=== PATIENT | male | born 1975 | race Hispanic/Latino ===

== ENCOUNTER → 2017-02-21 | Day surgery (SDC) | payer OTHER ==
[~2017-02-21] VITALS: Ht 177.8 cm; Wt 83.9 kg
[~2017-02-21] MED LIST: RANITIDINE HCL150 M2 PO; [UNRECOGNIZED DRUG - OTHER] OPH
--- NOTE | 2017-02-21 15:27 | Operative Report ---
Operative/Inv Procedure Report Surgery Date: 02/21/17 Name of Procedure: Excision subfascial scalp lipoma Pre-Operative Diagnosis: Lipoma Post-Operative Diagnosis: Same Estimated Blood Loss: scant Surgeon/Gold Leaf Layer: PETER ORONA MD Anesthesia: local monitored anesthesi Specimens: 2cm lipoma Operative/Procedure Note Note: After consent he is brought to the operative laid prone. His right occipital area was then prepped and draped. Skin overlying the mass was inserted local anesthesia and a transverse incision made sharply. Dissection was carried forth down to the subcutaneous tissues tissues and the mass was deep to the musculature. Incised with cautery. Hemostasis achieved with cautery. There was a small benign-appearing lipoma which was circumferentially dissected with sharp dissection passed off the field. The fascia was closed with 3-0 Vicryl. Skin closed with 4-0 Vicryl. Dermabond was applied along with a sterile dressing. CC: ANNA WING APRN
== END ==
LOC: STS 02:09
DX: D21.0 Benign neoplasm of connective and other soft tissue of head, face and neck (principal); K21.9 Gastro-esophageal reflux disease without esophagitis; G43.909 Migraine, unspecified, not intractable, without status migrainosus
CPT/HCPCS: 88304; 88305; J2250

== ENCOUNTER 2018-01-10 21:34 | Emergency (ER) | payer OTHER ==
[~2018-01-10] VITALS: Ht 177.8 cm; Wt 83.9 kg
--- NOTE | 2018-01-10 22:00 | ED HEADACHE COMPLAINT ---
History of Present Illness General Chief Complaint: Headache Stated Complaint: CARR, ELEVATED BP Source: patient Exam Limitations: no limitations Vital Signs & Intake/Output Vital Signs & Intake/Output Vital Signs Date Time Temp Pulse Resp B/P B/P Pulse O2 O2 Flow FiO2 Mean Ox Delivery Rate 01/107 99 Room Air 01/10 2145 98.5 55 18 154/85 98 Room Air Allergies Coded Allergies: NO KNOWN ALLERGIES (03/05/13) Reconcile Medications Ranitidine HCl 150 MG CAPSULE 1 CAP PO BID PRN GERD (Reported) Triage Note: PT FROM HOME C/O MIGRAINE SINCE 599. PT STATES THAT LAST FRIDAY HE BECAME VERY DIZZY AT WORK AND HAD TO SIT DOWN. PT STATES "I THINK IT MAY BE STRESS BUT IM UNSURE" PT STATES HE HAD HIS SIGNIFICANT OTHER TAKE BP AND IT WAS ELEVATED. PTS BP IN TRIAGE 154/85. PT STATES BACK OF HIS HEAD/NECK MIGRAINE. PT TOOK TYLENOL WITHOUT RELIEF. PT STATES SOB AND ANYTHING CAN MAKE PT MAD, PER PT. "ALMOST LIKE ANXIETY" VSS. PT CALM AND COOPERATIVE IN TRIAGE, NO DISTRESS NOTED 98% 02 ON RA. Triage Nurses Notes Reviewed? yes Onset: Abrupt Duration: day(s): (1), better, intermittent Timing: single episode today Quality/Severity: moderate, pressure Severity Numbers: 7 Head Injury Location: occipital No Modifying Factors: none Associated Symptoms: fatigue, SOB HPI: 42-year-old male past medical history of migraine headaches, GERD, asthma exacerbation of headaches, fatigue and shortness of breath. Patient states that he woke up today with a headache. Pain is located in the occipital area radiates into his neck described as pressure. He states he has a history of similar headaches in the past. No nausea vomiting or photophobia. No head trauma changes in vision. No fever. He does report associated fatigue and some shortness of breath. The shortness of breath wasn't arrested is not worse on exertion. Has no chest pain. No hemoptysis no lower extremity edema. No history of DVT no recent surgeries trauma. He states that he took ibuprofen earlier today with complete resolution of his headache. He also notes that he felt like his blood pressure was high today. He checked it at home it was 150s over 90s. He's never had high blood pressure before he does not take any medicine for blood pressure. (Danie Rios) Past History Travel History Traveled to [place] past 21 day No Medical History Any Pertinent Medical History? see below for history Neurological: migraine EENT: NONE Cardiovascular: NONE Respiratory: asthma Gastrointestinal: GERD, hiatal hernia Hepatic: NONE Renal: NONE Musculoskeletal: NONE Psychiatric: NONE Endocrine: NONE Blood Disorders: NONE Cancer(s): NONE PIPE PRODUCTION WORKER/Reproductive: NONE Surgical History Surgical History: non-contributory Psychosocial History What is your primary language Kenyan Tobacco Use: Never used Family History Hx Contributory? No (Danie Rios) Review of Systems Review of Systems Constitutional: Reports: no symptoms. Eyes: Reports: no symptoms. Ears, Nose, Throat, Mouth: Reports: no symptoms. Respiratory: Reports: no symptoms. Cardiovascular: Reports: no symptoms. Gastrointestinal/Abdominal: Reports: no symptoms. Genitourinary: Reports: no symptoms. Musculoskeletal: Reports: no symptoms. Skin: Reports: no symptoms. Neurological/Psychological: Reports: see HPI (FATIGUE), headache. Hematologic/Endocrine: Reports: no symptoms. Endocrine: Reports: no symptoms. Immunologic/Allergic: Reports: no symptoms. All Other Systems: Reviewed and Negative (Danie Rios) Physical Exam Physical Exam General Appearance: well developed/nourished, no apparent distress, alert, awake Head: atraumatic, normal appearance Eyes: Bilateral: normal appearance, PERRL, EOMI. Ears, Nose, Throat: normal pharynx, normal ENT inspection, hearing grossly normal Neck: normal inspection, supple, full range of motion Respiratory: normal breath sounds, chest non-tender, no respiratory distress, lungs clear Cardiovascular: regular rate/rhythm, normal peripheral pulses Gastrointestinal: normal bowel sounds, soft, non-tender, no organomegaly Back: normal inspection, normal range of motion, no vertebral tenderness Extremities: normal inspection, normal range of motion, no edema Psychiatric: awake, alert, oriented x 3 Cranial Nerves: normal hearing, normal speech, PERRL Coordination/Gait: normal finger to nose, normal gait Motor/Sensory: no motor/sensory deficits Skin: intact, normal color, warm/dry Lymphatic: no anterior cervical santa Core Measures Sepsis Present: No Sepsis Focused Exam Completed? No (Danie Rios) Progress Differential Diagnosis: cluster CARR, IC mass/tumor, intracranial Hem., migraine CARR, musculoskeletal pain, sinusitis, subarach. Hem., tension CARR Plan of Care: Orders Procedure Date/time Status URINALYSIS 01/10 2207 Complete TROPONIN LEVEL 01/10 2207 Complete COMPREHENSIVE METABOLIC PANEL 01/10 2207 Complete CBC WITHOUT DIFFERENTIAL 01/10 2207 Complete EKG 01/11 2148 Active Laboratory Tests 01/10/182217: Anion Gap 10, Estimated GFR > 60, BUN/Creatinine Ratio 11.5, Glucose 87, Calcium 9.7, Total Bilirubin 0.6, AST 18, ALT 38, Alkaline Phosphatase 66, Troponin I < 0.01, Total Protein 6.9, Albumin 4.2, Globulin 2.7, Albumin/Globulin Ratio 1.6, CBC w Diff NO MAN DIFF REQ, RBC 5.52, MCV 82.5, MCH 27.5, MCHC 33.3, RDW 14.3, MPV 10.0, Gran % 69.8, Lymphocytes % 21.8, Monocytes % 7.0, Eosinophils % 1.0, Basophils % 0.4, Absolute Granulocytes 4.9, Absolute Lymphocytes 1.5, Absolute Monocytes 0.5, Absolute Eosinophils 0.1, Absolute Basophils 0 01/10/182209: Urine Color YEL, Urine Clarity CLEAR, Urine pH 6.0, Ur Specific Sinclair 1.020, Urine Protein NEG, Urine Ketones NEG, Urine Nitrite NEG, Urine Bilirubin NEG, Urine Urobilinogen 0.2, Ur Leukocyte Esterase NEG, Ur Microscopic EXAM NOT REQUIRED, Urine Hemoglobin NEG, Urine Glucose NEG Patient seen and evaluated. He is here reporting headache shortness breath elevated blood pressure and fatigue. He states that he woke up with a headache but is now resolved since he took ibuprofen. His blood pressure at triage is 150s over 80s. He has no chest pain. Remaining vital signs within normal limits. Patient is neurologically intact exam is normal. EKG normal sinus rhythm without ST or T-wave changes. We'll check basic labs including troponin and chest x-ray and CT scan of the brain. Patient declines any pain medication at this time. PERC NEGATIVE. CT SCAN IS NEGATIVE. CHEST X-RAY NEGATIVE. BLOOD WORK SO FAR IS WNL. PENDING TROP. PT SIGNEDOUT TO MESERET MORLEY PENDING TROPONIN. Diagnostic Imaging: Viewed by Me: Radiology Read, CT Scan. Discussed w/RAD: Radiology Read, CT Scan. Radiology Impression: PATIENT: ROBERT ORONA PRESENT AGE : 42 PATIENT ACCOUNT NO: [id number] : 76 LOCATION: [facility] [place] ORDERING PHYSICIAN: Danie CARL SERVICE DATE: 01/10/18 EXAM TYPE: CAT - CT HEAD WO IV CONTRAST EXAMINATION: CT HEAD WITHOUT CONTRAST CLINICAL INFORMATION: Headache COMPARISON: None TECHNIQUE: Contiguous axial imaging was performed from the skull base to vertex without intravenous administration of contrast. DLP: 620.93 mGy-cm FINDINGS: There is no evidence of acute intracranial hemorrhage or territorial infarction. No abnormal mass effect or midline shift is seen. Thurston to white matter differentiation is well preserved. No extra-axial fluid collections are identified. The ventricles are normal in size. There is no abnormal attenuation within the brain parenchyma. The osseous structures and soft tissues are normal. The mastoid air cells and visualized portions of the paranasal sinuses are well aerated. IMPRESSION: No acute intracranial pathology. DICTATED BY: Gaurav Michel MD DATE/TIME DICTATED:01/10/182233 SOLUTION STRATEGIST :FILIPPO DATE/TIME TRANSCRIBED:01/10/182233 CONFIDENTIAL, DO NOT COPY WITHOUT APPROPRIATE AUTHORIZATION. CXR Impression: PATIENT: ROBERT ORONA PRESENT AGE: 42 PATIENT ACCOUNT NO: [id number] : 76 LOCATION: [facility] [place] ORDERING PHYSICIAN: Danie CARL SERVICE DATE: 01/10/18 EXAM TYPE: RAD - XRY-CHEST XRAY, TWO VIEWS EXAMINATION: XR CHEST CLINICAL INFORMATION: Shortness of breath. Elevated blood pressure. COMPARISON: Chest x-ray 09/23/2011 TECHNIQUE: 2 views of the chest were obtained. FINDINGS: No significant abnormality is noted involving the heart, lungs, mediastinum, bony thorax or soft tissues. IMPRESSION : Unremarkable examination. DICTATED BY: Gaurav Michel MD DATE/TIME DICTATED:2229 SOLUTION STRATEGIST:FILIPPO DATE/TIME TRANSCRIBED:01/10/182229 CONFIDENTIAL, DO NOT COPY WITHOUT APPROPRIATE AUTHORIZATION. 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 Continue Tylenol and ibuprofen for pain. Monitor symptoms return with any concerns. Departure Forms: Customer Survey General Discharge Information (Danie Rios) PA/CHAIR MENDER Co-Sign Statement Statement: ED Attending supervision documentation- [] I saw and evaluated the patient. I have also reviewed all the pertinent lab results and diagnostic results. I agree with the findings and the plan of care as documented in the PA's/CHAIR MENDER's documentation. [x] I have reviewed the ED Record and agree with the PA's/CHAIR MENDER's documentation. [] Additions or exceptions (if any) to the PAs/CHAIR MENDER's note and plan are summarized below: [] (Dayanna LONDON,Jose Carlos Soto)
[2018-01-10 22:33] LABS: ABSOLUTE BASOPHIL COUNT 0 /CUMM (0.0-0.2); ABSOLUTE EOSINOPHIL COUNT 0.1 /CUMM (0.0-0.7); ABSOLUTE GRANULOCYTE CT 4.9 /CUMM (1.4-6.5); ABSOLUTE LYMPH COUNT 1.5 /CUMM (1.2-3.4); ABSOLUTE MONOCYTE COUNT 0.5 /CUMM (0.10-0.60); BASOPHIL % 0.4 % (0.0-2.0); GRANULOCYTE % 69.8 % (42.2-75.2); HEMATOCRIT 45.6 % (42-52); MEAN CORPUSCULAR HGB 27.5 PG (27.0-31.0); MEAN CORPUSCULAR HGB CONC 33.3 G/DL (33.0-37.0); MEAN CORPUSCULAR VOLUME 82.5 FL (80.0-94.0); PLATELET COUNT 172 /CUMM (130-400); RBC DISTRIBUTION WIDTH 14.3 % (11.5-14.5); RED BLOOD CELL CT 5.52 /CUMM (4.70-6.10); WHITE BLOOD CELL COUNT 7.1 /CUMM (4.8-10.8)
--- NOTE | 2018-01-10 22:34 | RADIOLOGY REPORT ---
EXAMINATION: XR CHEST CLINICAL INFORMATION: Shortness of breath. Elevated blood pressure. COMPARISON: Chest x-ray 09/23/2011 TECHNIQUE: 2 views of the chest were obtained. FINDINGS: No significant abnormality is noted involving the heart, lungs, mediastinum, bony thorax or soft tissues. IMPRESSION: Unremarkable examination.
--- NOTE | 2018-01-10 22:39 | CT SCAN REPORT ---
EXAMINATION: CT HEAD WITHOUT CONTRAST CLINICAL INFORMATION: Headache COMPARISON: None TECHNIQUE: Contiguous axial imaging was performed from the skull base to vertex without intravenous administration of contrast. DLP: 620.93 mGy-cm FINDINGS: There is no evidence of acute intracranial hemorrhage or territorial infarction. No abnormal mass effect or midline shift is seen. Thurston to white matter differentiation is well preserved. No extra-axial fluid collections are identified. The ventricles are normal in size. There is no abnormal attenuation within the brain parenchyma. The osseous structures and soft tissues are normal. The mastoid air cells and visualized portions of the paranasal sinuses are well aerated. IMPRESSION: No acute intracranial pathology.
[2018-01-10 23:37] VITALS: BP 140/89
== END 2018-01-10 23:42 ==
LOC: ERH 21:34
PROVIDERS: Physician Assistant Medical
DX: R51 Headache (principal)
CPT/HCPCS: 71046; 81003; 93005; 93010